=== PATIENT | female | born 1985 | race Two or more races ===

== ENCOUNTER 2021-05-28 20:55 | Emergency (ER) | payer OTHER ==
[~2021-05-28] VITALS: Ht 152.4 cm; Wt 68.0 kg
[2021-05-28] MEDS ORDERED: XOPENEX0.63 MG/3 IH (21:09)
[2021-05-29] MEDS ORDERED: ZITHROMAX500 MG PO (02:05)
[2021-05-29] MEDS ORDERED: OSEL75CA PO (02:05)
[2021-05-29] MEDS ORDERED: ALBUTEROL2.5 MG/3 M IH (02:05)
[2021-05-29] MEDS ORDERED: ZYNCOF 20-400120 ML PO (02:05)
== END 2021-05-29 02:54 ==
LOC: ER 20:55
DX: A49.3 Mycoplasma infection, unspecified site (principal); J45.909 Unspecified asthma, uncomplicated; Z20.822 Contact with and (suspected) exposure to COVID-19

== ENCOUNTER 2021-09-02 08:14 | Outpatient (CLI) | payer OTHER ==
[~2021-09-02 08:14] MED LIST: ALBUTEROL2.5 MG/3 M IH; OSEL75CA PO; XOPENEX0.63 MG/3 IH; ZITHROMAX500 MG PO; ZYNCOF 20-400120 ML PO
== END 2021-09-02 08:44 | disposition home or self-care (01) ==
LOC: TOM 08:14
PROVIDERS: ATTEND Obstetrics & Gynecology
DX: R10.2 Pelvic and perineal pain (principal); R59.9 Enlarged lymph nodes, unspecified; N83.209 Unspecified ovarian cyst, unspecified side

== ENCOUNTER 2024-10-31 14:51 | Outpatient (CLI) | payer OTHER ==
[2024-10-31 16:01] LABS: COVID-19 AG NEGATIVE (NEGATIVE)
[2024-10-31 16:17] LABS: MYCOPLASMA PNEUMONIAE IGM REACTIVE (NO REACTIVE)
== END 2024-10-31 14:53 | disposition home or self-care (01) ==
LOC: LAB 14:51
DX: R05.9 Cough, unspecified (principal)

== ENCOUNTER 2024-11-05 14:19 | Emergency (ER) | payer OTHER ==
[~2024-11-05] VITALS: Ht 167.6 cm; Wt 59.0 kg
[2024-11-05] MEDS ORDERED: ONDANSETRON HCL 2 MG/ML VIAL IV STA (15:47)
[2024-11-05] MEDS ORDERED: FAMOTIDINE/PF 20 MG/2 ML VIAL IV STA (15:47)
[2024-11-05 16:24] LABS: BASO % 0.4 % (0.1-1.2); EOS # 0.00 (0.04-0.54); EOS % 0.0 % (0.7-7.0); LYMPH # 0.96 (1.18-3.74); LYMPH % 5.6 % (19.3-53.1); MEAN PLATELET VOLUME 10.20 fl (9.4-12.4); MONO # 0.94 (0.24-0.82); MONO % 5.5 % (4.7-12.5); NEUT # 15.00 (1.56-6.13); NEUT % 88.1 % (34.0-71.1); RED CELL DISTRIBUTION WIDTH 12.2 % (11.6-14.4)
[2024-11-05 16:46] LABS: ALT/SGPT 44.0 U/L (12-78); AST/SGOT 35.0 U/L (15-37); BILIRUBIN TOTAL 0.43 mg/dL (0.3-1.2); BUN CREA RATIO 20.0 (7.0-25.0); CREATININE SERUM 1.02 mg/dL (0.55-1.02); GFR 59.15; GLOBULINA 3.9 G/DL (2.4-3.5); GLUCOSE FASTING 118.0 mg/dL (65-100); OSMOLALITY SERUM 287.0 MOSM/KG (275-295)
[2024-11-05 17:16] LABS: URINE BILIRRUBIN NEGATIVE (NEGATIVE); URINE BLOOD NEGATIVE; URINE GLUCOSE NEGATIVE (NEGATIVE); URINE KETONE NEGATIVE (NEGATIVE); URINE LEUKOCYTE NEGATIVE; URINE NITRATE NEGATIVE; URINE PROTEIN NEGATIVE (NEGATIVE); URINE UROBILINOGEN 0.2 E.U./dl
[2024-11-05 17:43] LABS: URINE APPEARANCE SL CLOUDY; URINE COLOR YELLOW; URINE MUCUS HEAVY
[2024-11-05 17:44] LABS: URINE BACTERIA FEW; URINE EPITHELIAL CELLS 0-4 /HPF; URINE RBC 0-3 /HPF; URINE WBC 0-2 /hpf
[2024-11-05] MEDS ORDERED: KETOROLAC TROMETHAMINE 30 MG VIAL IV STA (18:52)
[2024-11-05] MEDS ORDERED: ORPHENADRINE CITRATE 30 MG/ML AMPUL IV STA (18:53)
[2024-11-05] MEDS ORDERED: 0.9 % SODIUM CHLORIDE 1,000 ML IV ONE ×2 (22:45)
[2024-11-05] MEDS ORDERED: TAMSULOSIN HCL 0.4 MG CAP PO ONE (22:45)
[2024-11-05] MEDS ORDERED: levoFLOXacin IN DEXTROSE 5 % 150 ML IV ONE (22:45)
[2024-11-06 00:15] LABS: BASO % 0.2 % (0.1-1.2); EOS # 0.01 (0.04-0.54); EOS % 0.1 % (0.7-7.0); LYMPH # 0.89 (1.18-3.74); LYMPH % 6.7 % (19.3-53.1); MEAN PLATELET VOLUME 10.70 fl (9.4-12.4); MONO # 0.75 (0.24-0.82); MONO % 5.6 % (4.7-12.5); NEUT # 11.65 (1.56-6.13); NEUT % 87.0 % (34.0-71.1); RED CELL DISTRIBUTION WIDTH 12.1 % (11.6-14.4)
== END 2024-11-06 01:51 | disposition home or self-care (01) ==
LOC: ER → EDBD 17:38 → ER 17:38
PROVIDERS: General Practice
DX: N20.0 Calculus of kidney (principal); R10.9 Unspecified abdominal pain
CPT/HCPCS: 36415; 74177; Q9965